=== PATIENT | female | born 1960 | race Hispanic/Latino ===

== ENCOUNTER → 2025-01-20 | Outpatient (CLI) | payer BC ==
[~2025-01-20] MED LIST: CHOL50004 PO; FLUT16H NASAL; LEVO88TA7 PO; VITAMIN E PO; [UNRECOGNIZED DRUG - CODE] PO; [UNRECOGNIZED DRUG - REMARK] PO
--- NOTE | 2025-01-20 15:44 | HMCIMG ---
US PELVIC NON-OB COMP REASON: abnormal uterine and vaginal bleeding, unspecified COMPARISON: None TECHNIQUE: Routine pelvic sonogram was performed. FINDINGS: Uterus is 8.9 x 3.2 x 5.4 cm. Endometrium is 3 mm. There are no focal endometrial or myometrial masses. Both ovaries appear normal. There are no adnexal masses. There is no free fluid in cul-de-sac. Urinary bladder appears unremarkable. IMPRESSION: 1. Normal pelvic sonogram.
--- NOTE | 2025-01-20 15:45 | HMCIMG ---
US RENAL SONOGRAM REASON: abnormal uterine and vaginal bleeding, unspecified, Disorder of urinary sys COMPARISON: None TECHNIQUE: Renal and bladder sonogram performed. FINDINGS: Right kidney is 12.7 x 5.1 x 5.2 cm, left 11.7 x 6.2 x 4.7 cm There is no mass, stone or hydronephrosis. Urinary bladder appears normal, wall is 4 mm, there are no focal masses. IMPRESSION: 1. Normal renal and bladder sonogram.
== END | disposition home or self-care (01) ==
LOC: RAH 09:36
PROVIDERS: ATTEND Internal Medicine
DX: N93.9 Abnormal uterine and vaginal bleeding, unspecified (principal); R39.9 Unspecified symptoms and signs involving the genitourinary system
CPT/HCPCS: 76770; 76856